=== PATIENT | female | born 1960 ===

== ENCOUNTER → 2018-09-30 | Outpatient (CLI) | payer OTHER ==
[~2018-09-30] MED LIST: ARIP15TA9 PO; ATOR10TA24 PO; CHOL10005 PO; CINN500C12 PO; DOCU-416 PO; LEVO50TA86 PO; OXCA300T44 PO; PANT40TA65 PO; UBID50TA3 PO
--- NOTE | 2018-10-17 18:04 | RADIOLOGY IMAGING REPORT ---
FACILITY: [facility] PATIENT NAME: NILO HARRIS : [id number] MR: [id number] V: [id number] EXAM DATE: ORDERING PHYSICIAN: RAPHAEL WAITE TECHNOLOGIST: Nini Rock PROCEDURE:BILATERAL DIGITAL SCREENING MAMMOGRAM WITH CAD ASSISTED INTERPRETATION & 3D TOMOSYNTHESIS COMPARISON:None. INDICATIONS:screening FINDINGS: Multiple attempts at obtaining the patient's prior mammograms have been unsuccessful therefore the current examination will be read as a baseline mammogram. If the previous mammograms do become available an addendum can be dictated at that time. The breasts are heterogeneously dense which can obscure small masses. There is no demonstration of malignancy appearing mass, malignant appearing calcification or secondary sign of malignancy in either breast. DIAGNOSTIC CATEGORY 1--NEGATIVE. RECOMMENDATIONS: ROUTINE MAMMOGRAM AND CLINICAL EVALUATION. IMPRESSION: BIRADS 1: Negative. No significant abnormality is seen. Dictated by: Jeanie Holt M.D. on 10/14/2018 at 14:25 Transcribed by: PEMA on 10/15/2018 at 12:10 Approved by: Jeanie Holt M.D. on 10/17/2018 at 18:03 [facility]
== END ==
LOC: MAMO 01:17
PROVIDERS: ATTEND Family Medicine
DX: Z12.31 Encounter for screening mammogram for malignant neoplasm of breast (principal)
CPT/HCPCS: 77063; 77067

== ENCOUNTER 2018-11-09 01:19 | Day surgery (SDC) | payer OTHER ==
[~2018-11-09] VITALS: Ht 165.1 cm; Wt 97.5 kg
[~2018-11-09 01:19] MED LIST changes: +LEVO150T78 PO; +VITA-175 PO
[2018-11-09] MEDS ORDERED: LIDOCAINE/SOD BICARB 8.4% SYR ID ONE (06:30)
[2018-11-09] MEDS ORDERED: NORMOSOL R SOLN(*) 1000 ML BAG 1,000 ML IV PRN (06:30)
[2018-11-09 06:36] VITALS: BP 130/65
[2018-11-09] MEDS ORDERED: PROPOFOL EMUL(*) 10MG/ML 20 ML 20 ML ONE ×2 (07:00→07:58)
[2018-11-09 08:05] VITALS: BP 124/96
--- NOTE | 2018-11-09 08:10 | Short(Outpt) Discharge Summary ---
Discharge Summary Reason for Hosp/Final Diag: (1) Colon cancer screening Status: Chronic Hospital Course & Plan: Colonoscopy completed without problems, normal. Departure Discharge to: Home, Self Care Discharge Instructions Home Meds Reported Medications Vitamin B Complex (B COMPLEX) 1 Each Tablet, 1 EACH PO QDAY 11/02/18 Levothyroxine Sodium (LEVOTHYROXINE SODIUM) 150 Mcg Tablet, 150 MCG PO QDAY 11/02/18 Ubidecarenone (COQ10) Unknown Strength Tab.chew, PO, TAB.CHEW 09/13/18 Docusate Sodium (COLACE) 100 Mg Capsule, 100 MG PO BID, CAPSULE 09/13/18 Cholecalciferol (Vitamin D3) (VITAMIN D3) 1,000 Unit Tablet, 1000 UNIT PO BID, TAB 09/13/18 Cinnamon Bark (CINNAMON) 500 Mg Capsule, 1000 MG PO BID, CAPSULE 09/13/18 Pantoprazole Sodium (PANTOPRAZOLE SODIUM) 40 Mg Tablet.dr, 40 MG PO QDAY, TAB.SR 09/13/18 Atorvastatin Calcium (LIPITOR) 10 Mg Tablet, 1 TAB PO QDAY, TAB 09/13/18 Oxcarbazepine (TRILEPTAL) 300 Mg Tablet, 300 MG PO DAILY 09/13/18 Aripiprazole (ABILIFY) 15 Mg Tablet, 15 MG PO QDAY, TAB 09/13/18 Discontinued Reported Medications Levothyroxine Sodium (LEVOTHYROXINE SODIUM) 50 Mcg Tablet, 15 MCG PO QDAY, TAB 09/13/18 Diet: Regular Activity: As Tolerated Special Instructions: Your colonoscopy was completed without any problems and your prep was excellent (Good Job!!). I didn't find any polyps, cancer, or other abnormalities. It was normal. I recommend that your next colonoscopy be in 10 years ([id number]!!). ANDREA TOM MD Nov 09, 2018 08:10
[2018-11-09 08:15] VITALS: BP 99/54
[2018-11-09 08:47] VITALS: BP 139/74
[2018-11-09 08:51] VITALS: BP 125/69
--- NOTE | 2018-11-09 09:26 | NUR ---
0805- PT. RECEIVED FROM OR VIA STRETCHER WITH THE SIDERAILS UP. SBAR RECEIVED FROM MARIA LUISA PADRON AND DR. RICKETTS. SEE ADMISSION ASSESSMENT. 0810- PT. STARTING TO BE MORE AWAKE. 0815- PT. O2 TURNED DOWN TO 2LPM. 0820- PT. GIVEN COFFEE. 0825- PT. GIVEN CHEESE AND CRACKERS. 0830- PT RETURNED TO ROOM AIR. 0845- PT. STATES THAT SHE IS READY TO GET DRESSED SO ORTHOSTATICS PREFORMED AND PT. DENIES ANY LIGHTHEADEDNESS OR DIZZINESS. 0900- CALLED HE STATES HE WILL BE IN IN 10 MIN. IV TAKEN OUT AND PRESSURE DRESSING APPLIED. 0910-PT. HERE 0912- DISCHARGE INSTRUCTIONS GONE OVER WITH PT. AND . ALL QUESTIONS ANSWERED AND THEY STATED UNDERSTANDING. 0918- PT. ACCOMPANIED OUT TO VEHICLE BY MYSELF AND HER . SEE DISCHARGE ASSESSMENT.
== END 2018-11-09 09:20 | disposition home or self-care (01) ==
LOC: OR 01:19
PROVIDERS: ATTEND Surgery
DX: Z12.11 Encounter for screening for malignant neoplasm of colon (principal)
CPT/HCPCS: 00812; 45378; J2704